=== PATIENT | male | born 2000 | race Caucasian/White ===

== ENCOUNTER 2023-05-08 15:03 | Emergency (ER) | payer OTHER ==
[~2023-05-08] VITALS: Ht 180.3 cm; Wt 89.4 kg
[~2023-05-08 15:03] MED LIST: AMOXICILLIN500 MG PO; LOTRISONE 0.05%45 GM T; MOTRIN600 MG PO; NKHM; ROBITUSSIN DM120 ML PO; ZITHROMAX Z PA250 MG PO; ZITHROMAX250 MG PO
[2023-05-08] MEDS ORDERED: Ketorolac Tromethamine 30 MG/ML VIAL IM ONE (15:25)
== END 2023-05-08 15:59 | disposition home or self-care (01) ==
LOC: ED 15:03
DX: S46.911A Strain of unspecified muscle, fascia and tendon at shoulder and upper arm level, right arm, initial encounter (principal); Z88.8 Allergy status to other drugs, medicaments and biological substances; Z90.49 Acquired absence of other specified parts of digestive tract; Z98.890 Other specified postprocedural states; X58.XXXA Exposure to other specified factors, initial encounter; Y93.72 Activity, wrestling; Y92.488 Other paved roadways as the place of occurrence of the external cause; Y99.8 Other external cause status